=== PATIENT | female | born 1990 | race Caucasian/White ===

== ENCOUNTER 2020-10-09 22:53 | Emergency (ER) | payer MEDICAID, OTHER ==
[~2020-10-09] VITALS: Ht 154.9 cm; Wt 43.5 kg
--- NOTE | 2020-10-09 23:20 | NUR ---
Patient discharged to home in stable condition. Written and verbal after care instructions given. Patient verbalizes understanding of instructions. Stressed follow up or return to ER for worsening s/s.
[2020-10-09] MEDS ORDERED: PRED20TA PO (23:24)
[2020-10-10 00:30] VITALS: BP 125/66
== END 2020-10-10 00:30 | disposition home or self-care (01) ==
LOC: ER 22:55
DX: L50.0 Allergic urticaria (principal)
CPT/HCPCS: A4663